=== PATIENT | male | born 1985 | race Caucasian/White ===

== ENCOUNTER 2018-02-05 11:17 | Emergency (ER) | payer MEDICAID, OTHER ==
[2018-02-05 11:17] VITALS: BMI 27.4
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
[2018-02-05 12:23] VITALS: RESP 18
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
[2018-02-05] MEDS ORDERED: Amoxicillin-Clav 875-125 mg Tab PO STA (12:52)
[2018-02-05 14:09] VITALS: BP 145/76; PULSE 61; TEMP 98; O2SAT 99
== END 2018-02-05 15:35 | disposition home or self-care (01) ==
LOC: ED 11:17
DX: S02.612A Fracture of condylar process of left mandible, initial encounter for closed fracture (principal); Y04.0XXA Assault by unarmed brawl or fight, initial encounter; F17.210 Nicotine dependence, cigarettes, uncomplicated
CPT/HCPCS: 70450; 70486; 96372; 99284; J1885